=== PATIENT | male | born 1955 | race Caucasian/White ===

== ENCOUNTER → 2021-07-26 10:12 | Outpatient (CLI) | payer OTHER, SELFPAY ==
[2021-07-26 19:34] LABS: Add Manual Diff / Slide Review NO; Basophils Absolute Auto 0 /uL (0-100); Basophils Percent Auto 0.7 % (0-2); Eosinophils Absolute Auto 100 /uL (0-450); Eosinophils Percent Auto 1.6 % (2-4); Hematocrit 47.6 % (41-53); Hemoglobin 16.4 g/dL (13.5-17.5); Lymphocytes Absolute Auto 1200 /uL (1100-4500); Lymphocytes Percent Auto 19.2 % (25-40); Mean Corpuscular HGB Conc 34.3 % (30-36); Mean Corpuscular Hemoglobin 31.7 PG (26-34); Mean Corpuscular Volume 92.3 fL (80-100); Monocytes Absolute Auto 400 /uL (0-900); Monocytes Percent Auto 6.8 % (3-14); Neutrophils Absolute Auto 4500 /uL (1500-7000); Neutrophils Percent Auto 71.7 % (50-75); Platelet Count 198 X10^3/uL (150-400); Red Blood Cell Count 5.16 X10^6/uL (4.5-5.9); Red Cell Distribution Width 12.5 % (11.6-14.8); White Blood Cell Count 6.3 X10^3/uL (4.5-11.0)
[2021-07-26 19:36] LABS: Alanine Aminotransferase 38 IU/L (<50); Albumin 4.3 g/dL (3.5-5.0); Albumin Globulin Ratio 1.4 (1.0-2.8); Alkaline Phosphatase 56 U/L (38-126); Aspartate Aminotransferase 31 IU/L (17-59); Bilirubin Total 0.8 mg/dL (0.2-1.3); Blood Urea Nitrogen 16 mg/dL (9-20); Calcium 9.6 mg/dL (8.4-10.2); Carbon Dioxide 26 mmol/L (22-32); Chloride 106 mmol/L (98-107); Cholesterol 154 mg/dL (140-199); Estimated Glomerular Filt Rate > 60.0 mL/min (>60); Globulin 3.1 g/dL (1.7-4.1); Glucose 98 mg/dL (80-110); HDL Cholesterol 32 mg/dL (40-60); HEMOLYSIS < 15 (0-50); LDL Cholesterol Calculated 105 mg/dL (<100); Potassium 4.8 mmol/L (3.4-5.1); Sodium 138 mmol/L (137-145); Total Protein 7.4 g/dL (6.3-8.2); Triglycerides 86 mg/dL (35-150)
[2021-07-26 19:39] LABS: Hemoglobin A1C% w Est Avg Glu 5.3 % (4.0-6.0)
[2021-07-26 20:05] LABS: Prostate Specific Antigen Scrn 0.718 ng/mL (0.1-4.0)
== END ==
PROVIDERS: PCP Family Medicine; Visit Provider Physician Assistant
DX: E78.2 Mixed hyperlipidemia (principal); I10 Essential (primary) hypertension; N40.0 Benign prostatic hyperplasia without lower urinary tract symptoms; Z12.5 Encounter for screening for malignant neoplasm of prostate
CPT/HCPCS: 80053; 80061; 83036; 85025; G0103

== ENCOUNTER → 2022-11-15 15:03 | Outpatient (CLI) | payer MEDICARE, OTHER, SELFPAY ==
--- NOTE | 2022-11-16 02:06 | DI.NM.S_ITS ---
DATE OF SERVICE: 11/15/2022 PROCEDURE: Exercise stress test. INDICATIONS: Family history of coronary artery disease with hypertension, hyperlipidemia. CARDIAC STRESS: The patient underwent exercise stress test under the supervision of an attending staff. He walked on Omar protocol for 10 minutes, achieved maximum heart rate of 159, which was 103% of target heart rate. Resting blood pressure 126/80. Peak blood pressure 200/100 mmHg. Achieved 12.8 METs of workload and MAN -25%. Baseline rhythm sinus. During stress, no convincing ischemic changes seen. One ventricular couplet without any ventricular tachycardia. No chest pain or anginal symptoms. CONCLUSION: 1. Exercise test is negative for inducible ischemia. 2. Excellent exercise capacity. Achieved 12.8 METs of workload. Mildly hypertensive blood pressure response. Peak blood pressure 200/100 mmHg. 1 ventricular couplet without any complex ventricular arrhythmias. No chest pain. Overall, low-risk exercise stress test. Margarito Merida - GRETA/cely/kt doc#: [id number]/job#: [id number] dd: 11/15/2022 17:45:00 dt: 11/16/2022 01:56:00 DICTATING /COPIES TO: Sebastian Frederick MD COPIES MNE: PAT;
== END ==
PROVIDERS: PCP Physician Assistant; Referring Provider Family Medicine; Visit Provider Family Medicine
DX: E78.2 Mixed hyperlipidemia (principal); I10 Essential (primary) hypertension; Z82.49 Family history of ischemic heart disease and other diseases of the circulatory system
CPT/HCPCS: 93017

== ENCOUNTER → 2022-11-23 10:26 | Outpatient (CLI) | payer MEDICARE, OTHER, SELFPAY ==
[2022-11-23 19:50] LABS: Add Manual Diff / Slide Review NO; Basophils Absolute Auto 100 /uL (0-100); Basophils Percent Auto 1.3 % (0-2); Eosinophils Absolute Auto 100 /uL (0-450); Eosinophils Percent Auto 1.9 % (2-4); Hematocrit 47.9 % (41-53); Hemoglobin 16.7 g/dL (13.5-17.5); Lymphocytes Absolute Auto 2100 /uL (1100-4500); Lymphocytes Percent Auto 27.8 % (25-40); Mean Corpuscular HGB Conc 34.9 % (30-36); Mean Corpuscular Hemoglobin 32.4 PG (26-34); Monocytes Absolute Auto 500 /uL (0-900); Neutrophils Absolute Auto 4800 /uL (1500-7000); Platelet Count 200 X10^3/uL (150-400); Red Blood Cell Count 5.15 X10^6/uL (4.5-5.9); Red Cell Distribution Width 12.9 % (11.6-14.8); White Blood Cell Count 7.6 X10^3/uL (4.5-11.0)
[2022-11-23 19:59] LABS: Alanine Aminotransferase 38 IU/L (<50); Albumin 4.4 g/dL (3.5-5.0); Albumin Globulin Ratio 1.3 (1.0-2.8); Alkaline Phosphatase 63 U/L (38-126); Aspartate Aminotransferase 61 IU/L (17-59); BUN Creatinine Ratio 27.5 (6-22); Blood Urea Nitrogen 25 mg/dL (9-20); Calcium 9.6 mg/dL (8.4-10.2); Carbon Dioxide 26 mmol/L (22-32); Chloride 102 mmol/L (98-107); Cholesterol 186 mg/dL (140-199); Estimated Glomerular Filt Rate > 60 mL/min (>60); Globulin 3.4 g/dL (1.7-4.1); Glucose 96 mg/dL (80-110); HDL Cholesterol 34 mg/dL (40-60); HEMOLYSIS 21 (0-50); LDL Cholesterol Calculated 130 mg/dL (<100); Potassium 4.5 mmol/L (3.4-5.1); Sodium 136 mmol/L (137-145); Total Protein 7.8 g/dL (6.3-8.2); Triglycerides 112 mg/dL (35-150)
[2022-11-23 20:26] LABS: Prostate Specific Antigen Scrn 1.11 ng/mL (0.1-4.0)
== END ==
PROVIDERS: PCP Physician Assistant; Visit Provider Family Medicine
DX: I10 Essential (primary) hypertension (principal); Z12.5 Encounter for screening for malignant neoplasm of prostate; E78.2 Mixed hyperlipidemia
CPT/HCPCS: 80053; 80061; 84443; 85025; G0103

== ENCOUNTER → 2022-12-27 09:21 | Outpatient (CLI) | payer MEDICARE, OTHER, SELFPAY ==
[2022-12-27 20:11] LABS: HEMOLYSIS 16 (0-50)
[2022-12-27 20:16] LABS: Alanine Aminotransferase 51 IU/L (<50); Albumin 4.3 g/dL (3.5-5.0); Albumin Globulin Ratio 1.3 (1.0-2.8); Alkaline Phosphatase 65 U/L (38-126); Aspartate Aminotransferase 39 IU/L (17-59); Bilirubin Total 1.1 mg/dL (0.2-1.3); Bilirubin Unconjugated 0.7 mg/dL (0.0-1.1); Globulin 3.3 g/dL (1.7-4.1); Total Protein 7.6 g/dL (6.3-8.2)
[2022-12-27 20:51] LABS: LDL Cholesterol Direct 93 mg/dL (<100)
[2022-12-29 00:36] LABS: HBsAg Screen Negative (Negative); Hepatitis A Antibody IgM Negative (Negative); Hepatitis B Core Antibody IgM Negative (Negative); Hepatitis C Antibody Non Reactive (Non Reactive)
== END ==
PROVIDERS: PCP Physician Assistant; Visit Provider Family Medicine
DX: R79.89 Other specified abnormal findings of blood chemistry (principal); R74.01 Elevation of levels of liver transaminase levels; E66.01 Morbid (severe) obesity due to excess calories
CPT/HCPCS: 80074; 80076; 83721

== ENCOUNTER → 2023-05-11 10:26 | Outpatient (CLI) | payer MEDICARE, OTHER, SELFPAY ==
[2023-05-11 21:11] LABS: Alanine Aminotransferase 46 IU/L (<50); Albumin 4.5 g/dL (3.5-5.0); Albumin Globulin Ratio 1.5 (1.0-2.8); Alkaline Phosphatase 56 U/L (38-126); Aspartate Aminotransferase 33 IU/L (17-59); BUN Creatinine Ratio 30.9 (6-22); Bilirubin Total 1.1 mg/dL (0.2-1.3); Blood Urea Nitrogen 30 mg/dL (9-20); Calcium 10.1 mg/dL (8.4-10.2); Carbon Dioxide 25 mmol/L (22-32); Chloride 105 mmol/L (98-107); Cholesterol 167 mg/dL (140-199); Estimated Glomerular Filt Rate > 60 mL/min (>60); Globulin 3.1 g/dL (1.7-4.1); Glucose 97 mg/dL (80-110); HDL Cholesterol 32 mg/dL (40-60); HEMOLYSIS 16 (0-50); LDL Cholesterol Calculated 107 mg/dL (<100); Potassium 4.8 mmol/L (3.4-5.1); Sodium 138 mmol/L (137-145); Total Protein 7.6 g/dL (6.3-8.2); Triglycerides 139 mg/dL (35-150)
== END ==
PROVIDERS: PCP Family Medicine; Visit Provider Family Medicine
DX: E66.01 Morbid (severe) obesity due to excess calories (principal); R79.89 Other specified abnormal findings of blood chemistry; E78.2 Mixed hyperlipidemia
CPT/HCPCS: 80053; 80061

== ENCOUNTER → 2024-03-27 10:18 | Outpatient (CLI) | payer MEDICARE, OTHER, SELFPAY ==
[2024-03-27 20:36] LABS: Add Manual Diff / Slide Review NO; Basophils Absolute Auto 100 /uL (0-100); Basophils Percent Auto 0.8 % (0-2); Eosinophils Absolute Auto 200 /uL (0-450); Eosinophils Percent Auto 1.9 % (2-4); Hemoglobin 17.3 g/dL (13.5-17.5); Lymphocytes Absolute Auto 2300 /uL (1100-4500); Lymphocytes Percent Auto 28.1 % (25-40); Mean Corpuscular HGB Conc 34.5 % (30-36); Mean Corpuscular Hemoglobin 32.5 PG (26-34); Monocytes Absolute Auto 400 /uL (0-900); Monocytes Percent Auto 5.3 % (3-14); Neutrophils Absolute Auto 5300 /uL (1500-7000); Neutrophils Percent Auto 63.9 % (50-75); Platelet Count 214 X10^3/uL (150-400); Red Blood Cell Count 5.32 X10^6/uL (4.5-5.9); Red Cell Distribution Width 12.7 % (11.6-14.8); White Blood Cell Count 8.4 X10^3/uL (4.5-11.0)
[2024-03-27 20:45] LABS: Alanine Aminotransferase 40 IU/L (<50); Albumin 4.6 g/dL (3.5-5.0); Albumin Globulin Ratio 1.5 (1.0-2.8); Alkaline Phosphatase 60 U/L (38-126); Aspartate Aminotransferase 38 IU/L (17-59); Bilirubin Total 1.3 mg/dL (0.2-1.3); Blood Urea Nitrogen 23 mg/dL (9-20); Calcium 10.4 mg/dL (8.4-10.2); Carbon Dioxide 22 mmol/L (22-32); Chloride 104 mmol/L (98-107); Cholesterol 150 mg/dL (140-199); Estimated Glomerular Filt Rate > 60 mL/min (>60); Globulin 3.1 g/dL (1.7-4.1); Glucose 101 mg/dL (80-110); HDL Cholesterol 33 mg/dL (40-60); HEMOLYSIS 17 (0-50); LDL Cholesterol Calculated 95 mg/dL (<100); Sodium 138 mmol/L (137-145); Total Protein 7.7 g/dL (6.3-8.2); Triglycerides 112 mg/dL (35-150)
[2024-03-27 21:20] LABS: Thyroid Stimulating Hormone 0.822 uIU/mL (0.47-4.68)
[2024-03-27 21:22] LABS: Prostate Specific Antigen Scrn 1.17 ng/mL (0.1-4.0)
== END ==
PROVIDERS: PCP Family Medicine; Visit Provider Family Medicine
DX: R79.89 Other specified abnormal findings of blood chemistry (principal); E78.2 Mixed hyperlipidemia; Z12.5 Encounter for screening for malignant neoplasm of prostate; I10 Essential (primary) hypertension
CPT/HCPCS: 80053; 80061; 84443; 85025; G0103

== ENCOUNTER → 2025-05-07 13:25 | Outpatient (CLI) | payer MEDICARE, OTHER, SELFPAY ==
[2025-05-07 19:06] LABS: Vitamin D 25 Hydroxy (D3) 30.9 ng/mL (30.0-100.0)
[2025-05-08 21:07] LABS: Calcium 9.3 mg/dL (8.6-10.2); Parathyroid Hormone, Intact 42 pg/mL (15-65)
[2025-05-09 12:36] LABS: Albumin 4.0 g/dL (2.9-4.4); Alpha-1-Globulin 0.2 g/dL (0.0-0.4); Alpha-2-Globulin 0.7 g/dL (0.4-1.0); Gamma Globulin 1.4 g/dL (0.4-1.8)
[2025-05-12 12:38] LABS: Free Kappa Lt Chains, Serum 19.0 mg/L (3.3-19.4); Free Lambda Lt Chains,Serum 18.6 mg/L (5.7-26.3)
== END ==
PROVIDERS: PCP Family Medicine; Visit Provider Family Medicine
DX: Z12.5 Encounter for screening for malignant neoplasm of prostate (principal); E83.52 Hypercalcemia
CPT/HCPCS: 82306; 82310; 83883; 83970; 84155; 84165; G0103